=== PATIENT | female | born 1930 | race American Indian/Alaskan Native ===

== ENCOUNTER 2020-01-17 14:08 | Inpatient (IN) | payer MEDICARE ==
[2020-01-17] MEDS ORDERED: dilTIAZem 25 MG/5 ML INJ IV ONE ×2 (16:33→17:12)
--- NOTE | 2020-01-17 16:34 | Emergency Department Report ---
ED General Adult HPI - General Chief complaint: Dyspnea/Respdistress Stated complaint: DIFFICULTY BREATHING PUI?: No Time Seen by Provider: 01/17/20 16:25 Source: patient, EMS ( EMS documentation not available at time of chart dictation ), RN notes reviewed Mode of arrival: Stretcher Limitations: Physical Limitation, Other (Patient is a poor historian) - History of Present Illness Initial comments: The patient was evaluated in the emergency department for symptoms described in the history of present illness. He/she was evaluated in the context of the global COVID-19 pandemic, which necessitated consideration that the patient might be at risk for infection with the virus that causes COVID-19. Institutional protocols and algorithms that pertain to the evaluation of patients at risk for COVID-19 are in a state of rapid change based on information released by regulatory bodies including the CDC and federal and state organizations. These policies and algorithms were followed during the patient's care in the emergency department. Please note that these policies, procedures and recommendations changed on a rapid basis. Patient is an 89-year-old female. She is not known to myself previously. She appears to have a history of A. fib, on Eliquis, high cholesterol, hypertension, history of partial thyroidectomy. 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 Primary CARE doctor: Dr. Douglas Oh Cardiology: Dr. Jules Ambrose, Dr Maite Walls Patient brought to the hospital today by emergency medical services with a reported complaint of shortness of breath. Patient herself tells me that she is feeling short of breath. She denies physical pain. She is not quite sure how long she has been feeling this way. She denies headache, neck pain, chest pain, abdominal pain, hematemesis and bright red blood per rectum. Patient is somewhat of a poor historian, and has difficulty describing the qualitative nature of her symptoms, exacerbating, or relieving factors. Patient is not currently accompanied by friends or family at this time for additional information or collateral information. -: unknown Consistency: other Improves with: other Worsens with: other Associated Symptoms: other - Related Data Home Medications Medication Instructions Recorded Confirmed Last Taken Apixaban [Eliquis] 2.5 mg PO BID 01/17/20 01/17/20 01/17/20 AtorvaSTATin [Lipitor] 80 mg PO QHS 01/17/20 01/17/2001/16/20 Cyanocobalamin [Vitamin B-12] 2,500 mcg PO DAILY 01/17/20 01/17/20 01/17/20 Allergies Allergy/AdvReac Type Severity Reaction Status Date / Time metoprolol AdvReac Unknown Verified 01/17/20 16:04 ED Review of Systems ROS: Stated complaint: DIFFICULTY BREATHING Other details as noted in HPI Comment: Unobtainable due to pts medical conditions Constitutional: malaise Respiratory: shortness of breath Cardiovascular: denies: chest pain Gastrointestinal: denies: abdominal pain, hematemesis, melena, hematochezia Genitourinary: denies: dysuria Neurological: weakness, confusion ED Past Medical Hx - Past Medical History Previous Medical History?: Yes Hx Hypertension: Yes Hx Heart Attack/AMI: Yes (2 2014) Additional medical history: high cholestrol - Social History Smoking Status: Never Smoker Substance Use Type: None - Medications Home Medications: Home Medications Medication Instructions Recorded Confirmed Last Taken Type Apixaban [Eliquis] 2.5 mg PO BID 01/17/20 01/17/20 01/17/20 History AtorvaSTATin [Lipitor] 80 mg PO QHS 01/17/20 01/17/20 01/17/20 History Cyanocobalamin [Vitamin B-12] 2,500 mcg PO DAILY 01/17/20 01/17/20 01/17/20 History ED Physical Exam - General Limitations: Physical Limitation, Other (Poor historian) General appearance: in no apparent distress, anxious - Head Head exam: Present: atraumatic, normocephalic - Eye Eye exam: Present: normal appearance, EOMI - ENT ENT exam: Present: normal exam, normal orophraynx, mucous membranes moist, normal external ear exam - Neck Neck exam: Present: normal inspection, full ROM. Absent: tenderness, meningismus - Respiratory Respiratory exam: Present: respiratory distress, rales. Absent: rhonchi, stridor - Cardiovascular Cardiovascular Exam: Present: tachycardia, irregular rhythm. Absent: systolic murmur, diastolic murmur, rubs, gallop - GI/Abdominal GI/Abdominal exam: Present: soft. Absent: distended, tenderness, guarding, rebound, rigid, pulsatile mass - Rectal Rectal exam: Present: normal inspection (Chronic appearing sacral wounds, without redness, pus or streaking. Chaperoned by nurse Merissa Miner) - Extremities Exam Extremities exam: Present: normal inspection, full ROM, pedal edema, other (2+ pulses noted in the bilateral upper and lower extremities. There is no palpable cord. negative Homans sign. Muscular compartments are soft. The pelvis is stable.). Absent: calf tenderness - Back Exam Back exam: Present: normal inspection, full ROM. Absent: tenderness, CVA tenderness (R), CVA tenderness (L), paraspinal tenderness, vertebral tenderness - Neurological Exam Neurological exam: Present: altered, other (No facial droop. Tongue midline. Extraocular movements intact bilaterally. Facial sensation intact to light touch in V1, V2, V3 distribution bilaterally. 5 and a 5 strength in 4 extremities. Sensation intact to light touch in 4 extremities.) - Psychiatric Psychiatric exam: Present: anxious - Skin Skin exam: Present: warm, dry, intact, normal color. Absent: rash ED Course Vital Signs 01/17/20 01/17/20 01/17/20 15:10 15:16 15:19 Temperature 97.9 F Pulse Rate 148 H 141 H 125 H Respiratory 28 H 33 H 31 H Rate Blood Pressure 141/92 134/87 Blood Pressure 134/87 [Left] O2 Sat by Pulse 100 99 Oximetry 01/17/20 01/17/20 01/17/20 15:30 15:46 16:00 Temperature Pulse Rate 135 H 146 H 145 H Respiratory 28 H 27 H 22 Rate Blood Pressure 134/87 132/82 130/82 Blood Pressure [Left] O2 Sat by Pulse 98 100 99 Oximetry 01/17/20 01/17/20 01/17/20 16:16 16:30 16:45 Temperature Pulse Rate 158 H 147 H 184 H Respiratory 36 H 36 H Rate Blood Pressure 127/80 127/80 140/95 Blood Pressure [Left] O2 Sat by Pulse 100 100 Oximetry 01/17/20 01/17/20 01/17/20 16:46 17:00 17:15 Temperature Pulse Rate 153 H 129 H 112 H Respiratory 27 H 24 30 H Rate Blood Pressure 121/72 146/74 136/74 Blood Pressure [Left] O2 Sat by Pulse 100 99 99 Oximetry 01/17/20 01/17/20 01/17/20 17:23 17:30 17:45 Temperature Pulse Rate 145 H 118 H 101 H Respiratory 33 H 22 Rate Blood Pressure 136/74 136/66 121/76 Blood Pressure [Left] O2 Sat by Pulse 99 99 Oximetry 01/17/20 01/17/20 01/17/20 18:00 18:16 18:20 Temperature Pulse Rate 113 H 102 H 131 H Respiratory 29 H 18 Rate Blood Pressure 123/67 129/63 129/63 Blood Pressure [Left] O2 Sat by Pulse 98 99 Oximetry 01/17/20 01/17/20 01/17/20 18:30 18:46 19:00 Temperature 97.6 F Pulse Rate 140 H 98 H 165 H Respiratory 33 H 16 26 H Rate Blood Pressure 129/63 116/79 116/79 Blood Pressure 149/62 [Left] O2 Sat by Pulse 99 99 99 Oximetry 01/17/20 01/17/20 01/17/20 19:16 19:27 19:30 Temperature Pulse Rate 166 H 93 H 86 Respiratory 27 H Rate Blood Pressure 156/77 145/69 Blood Pressure [Left] O2 Sat by Pulse 100 100 Oximetry 01/17/20 01/17/20 19:45 20:00 Temperature Pulse Rate 82 91 H Respiratory 30 H 23 Rate Blood Pressure 147/71 143/76 Blood Pressure 147/71 [Left] O2 Sat by Pulse 100 100 Oximetry - Reevaluation(s) Reevaluation #1: 01/17/20 18:02 Heart rate now in the 90s. Hospital physician Dr Corry Olmstead updated, he states he will downgrade the patient. Verbal instruction provided to nursing team to hold diltiazem drip for now. TSH reviewed and appreciated, T4 is ordered. There may be a component of hyperthyroidism here. Reevaluation #2: 01/17/20 19:09 Free T4 is pending. Hospital physician, Dr. Corry Olmstead, States he will follow up on thyroid tests and medicate appropriately. Heart rate back in the 170s. Hospital physician Dr Corry Olmstead request diltiazem drip. This will require an up triage to the ICU. ED Medical Decision Making - Lab Data Result diagrams: 01/17/20 16:38 01/17/20 16:38 Vital Signs 01/17/20 01/17/20 01/17/20 15:10 15:16 15:19 Temperature 97.9 F Pulse Rate 148 H 141 H 125 H Respiratory 28 H 33 H 31 H Rate Blood Pressure 141/92 134/87 Blood Pressure 134/87 [Left] O2 Sat by Pulse 100 99 Oximetry 01/17/20 01/17/20 01/17/20 15:30 15:46 16:00 Temperature Pulse Rate 135 H 146 H 145 H Respiratory 28 H 27 H 22 Rate Blood Pressure 134/87 132/82 130/82 Blood Pressure [Left] O2 Sat by Pulse 98 100 99 Oximetry 01/17/20 01/17/20 16:45 17:23 Temperature Pulse Rate 184 H 145 H Respiratory Rate Blood Pressure 140/95 136/74 Blood Pressure [Left] O2 Sat by Pulse Oximetry Lab Results 01/17/20 01/17/20 01/17/20 Range/Units 16:38 16:38 16:38 WBC 4.3 L (4.5-11.0) K/mm3 RBC 4.23 (3.65-5.03) M/mm3 Hgb 12.1 (10.1-14.3) gm/dl Hct 37.2 (30.3-42.9) % MCV 88 (79-97) fl MCH 29 (28-32) pg MCHC 33 (30-34) % RDW 15.2 (13.2-15.2) % Plt Count 182 (140-440) K/mm3 Lymph % (Auto) 38.0 H (13.4-35.0) % [place] % (Auto) 16.0 H (0.0-7.3) % Eos % (Auto) 0.6 (0.0-4.3) % Baso % (Auto) 0.6 (0.0-1.8) % Lymph # (Auto) 1.6 (1.2-5.4) K/mm3 [place] # (Auto) 0.7 (0.0-0.8) K/mm3 Eos # (Auto) 0.0 (0.0-0.4) K/mm3 Baso # (Auto) 0.0 (0.0-0.1) K/mm3 Seg Neutrophils % 44.8 (40.0-70.0) % Seg Neutrophils # 1.9 (1.8-7.7) K/mm3 PT (12.2-14.9) Sec. INR (0.87-1.13) Sodium 138 (137-145) mmol/L Potassium 3.8 (3.6-5.0) mmol/L Chloride 103.8 (98-107) mmol/L Carbon Dioxide 22 (22-30) mmol/L Anion Gap 16 mmol/L BUN 19 H (7-17) mg/dL Creatinine 0.9 (0.6-1.2) mg/dL Estimated GFR > 60 ml/min BUN/Creatinine Ratio 21 % Glucose 101 H (65-100) mg/dL Lactic Acid 1.70 (0.7-2.0) mmol/L Calcium 8.4 (8.4-10.2) mg/dL Magnesium 1.80 (1.7-2.3) mg/dL Total Bilirubin 0.60 (0.1-1.2) mg/dL AST 45 H (5-40) units/L ALT 32 (7-56) units/L Alkaline Phosphatase 79 (35-129) units/L Total Creatine Kinase (30-135) units/L Troponin T (0.00-0.029) ng/mL NT-Pro-B Natriuret Pep (0-900) pg/mL Total Protein 6.8 (6.3-8.2) g/dL Albumin 3.1 L (3.9-5) g/dL Albumin/Globulin Ratio 0.8 % 01/17/20 01/17/20 Range/Units 16:38 16:38 WBC (4.5-11.0) K/mm3 RBC (3.65-5.03) M/mm3 Hgb (10.1-14.3) gm/dl Hct (30.3-42.9) % MCV (79-97) fl MCH (28-32) pg MCHC (30-34) % RDW (13.2-15.2) % Plt Count (140-440) K/mm3 Lymph % (Auto) (13.4-35.0) % [place] % (Auto) (0.0-7.3) % Eos % (Auto) (0.0-4.3) % Baso % (Auto) (0.0-1.8) % Lymph # (Auto) (1.2-5.4) K/mm3 [place] # (Auto) (0.0-0.8) K/mm3 Eos # (Auto) (0.0-0.4) K/mm3 Baso # (Auto) (0.0-0.1) K/mm3 Seg Neutrophils % (40.0-70.0) % Seg Neutrophils # (1.8-7.7) K/mm3 PT 14.8 (12.2-14.9) Sec. INR 1.14 H (0.87-1.13) Sodium (137-145) mmol/L Potassium (3.6-5.0) mmol/L Chloride (98-107) mmol/L Carbon Dioxide (22-30) mmol/L Anion Gap mmol/L BUN (7-17) mg/dL Creatinine (0.6-1.2) mg/dL Estimated GFR ml/min BUN/Creatinine Ratio % Glucose (65-100) mg/dL Lactic Acid (0.7-2.0) mmol/L Calcium (8.4-10.2) mg/dL Magnesium (1.7-2.3) mg/dL Total Bilirubin (0.1-1.2) mg/dL AST (5-40) units/L ALT (7-56) units/L Alkaline Phosphatase (35-129) units/L Total Creatine Kinase 120 (30-135) units/L Troponin T 0.018 (0.00-0.029) ng/mL NT-Pro-B Natriuret Pep 18655 H (0-900) pg/mL Total Protein (6.3-8.2) g/dL Albumin (3.9-5) g/dL Albumin/Globulin Ratio % - EKG Data -: EKG Interpreted by Me Rate: tachycardia - EKG Data When compared to previous EKG there are: previous EKG unavailable 01/17/20 17:33 A. fib, rapid ventricular rate, 166 bpm, variable ventricular conduction, left axis deviation, left anterior fascicular block, QTC 497 ms, abnormal EKG, not a STEMI, there is no prior for comparison. - Radiology Data Radiology results: pending, report reviewed, image reviewed interpreted by me: 1 view x-ray of the chest, interpreted by myself, right lower lobe infiltrate, pulmonary vascular congestion/CHF. CHEST 1 VIEW INDICATION / CLINICAL INFORMATION: Dyspnea. COMPARISON: None available. FINDINGS: SUPPORT DEVICES: None. HEART / MEDIASTINUM: Mild cardiomegaly LUNGS / PLEURA: Bibasilar pleural-parenchymal disease No pneumothorax. ADDITIONAL FINDINGS: No significant additional findings. IMPRESSION: Bibasilar pleural-parenchymal disease with mild cardiomegaly Signer Name: Marquez Rodriguez MD FACR Signed: 01/17/2020 4:34 PM Workstation Name: [id number] - Medical Decision Making Differential diagnosis, including but not limited to: A. fib with RVR, electrolyte derangement, thyroid derangement, pneumonia, urinary tract infection, anemia, congestive heart failure Assessment and plan: 89-year-old female who appears dyspneic, who is in A. fib with RVR, with evidence of lower extremity edema, crackles, mild rales, JVD, received diltiazem 10 mg IV x1, then 15 mg IV x1, still in A. fib with RVR, req uires initiation of diltiazem drip, and diuresis. X-ray of the chest suggested right lower lobe pneumonia, and urinalysis is pending at this time. Blood cultures will be obtained, patient will be given Lasix, ceftriaxone, azithromycin, urinalysis is pending, will also give oral diltiazem. Case is presented to the hospital physician, Dr. Corry Olmstead, who has accepted the patient to the medical service. Critical Care Time: Yes Critical care time in (mins) excluding proc time.: 35 Critical care attestation.: If time is entered above; I have spent that time in minutes in the direct care of this critically ill patient, excluding procedure time. ED Disposition Clinical Impression: Atrial fibrillation with RVR, CHF exacerbation Disposition: OP ADMIT IP TO THIS HOSP Is pt being admited?: Yes Does the pt Need Aspirin: No Condition: Serious
[2020-01-17 17:11] LABS: Basophils % (Auto) 0.6 % (0.0-1.8); Eosinophils % (Auto) 0.6 % (0.0-4.3); Hematocrit 37.2 % (30.3-42.9); Hemoglobin 12.1 gm/dl (10.1-14.3); Lymphocytes # (Auto) 1.6 K/mm3 (1.2-5.4); Mean Corpuscular HGB Conc 33 % (30-34); Mean Corpuscular Volume 88 fl (79-97); Monocytes # (Auto) 0.7 K/mm3 (0.0-0.8); Platelet Count 182 K/mm3 (140-440); Red Blood Count 4.23 M/mm3 (3.65-5.03); Red Cell Distribution Width 15.2 % (13.2-15.2)
[2020-01-17 17:21] LABS: INR 1.14 (0.87-1.13)
[2020-01-17 17:29] LABS: Alanine Aminotransferase 32 units/L (7-56); Albumin 3.1 g/dL (3.9-5); BUN/Creatinine Ratio 21; Blood Urea Nitrogen 19 mg/dL (7-17); Calcium 8.4 mg/dL (8.4-10.2); Hemolysis Index 25
[2020-01-17] MEDS ORDERED: cefTRIAXone/NS 1 GM/50 ML 1 GM/50 ML BAG IV ONE (17:35)
[2020-01-17] MEDS ORDERED: FUROSEMIDE 40 MG/4 ML INJ IV ONE (17:35)
[2020-01-17] MEDS ORDERED: dilTIAZem 60 MG TAB PO ONE (17:35)
--- NOTE | 2020-01-17 17:39 | XRay Report ---
CHEST 1 VIEW INDICATION / CLINICAL INFORMATION: Dyspnea. COMPARISON: None available. FINDINGS: SUPPORT DEVICES: None. HEART / MEDIASTINUM: Mild cardiomegaly LUNGS / PLEURA: Bibasilar pleural-parenchymal disease No pneumothorax. ADDITIONAL FINDINGS: No significant additional findings. IMPRESSION: Bibasilar pleural-parenchymal disease with mild cardiomegaly Signer Name: Marquez Rodriguez MD FACR Signed: 01/17/2020 5:34 PM Workstation Name: [id number]
[2020-01-17] MEDS ORDERED: dilTIAZem/D5W 100 MG/100 ML BAG IV SCH ×2 (18:00→20:00)
[2020-01-17] MEDS ORDERED: dilTIAZem 30 MG TAB ONE (18:15)
[2020-01-17] MEDS ORDERED: dilTIAZem 30 MG TAB PO ONE (18:19)
[2020-01-17] MEDS ORDERED: AZITHROMYCIN 500 MG in SODIUM CHLORIDE 0.9% 250ML 250 ML IV ONE (19:00)
[2020-01-17 20:06] LABS: Bilirubin,Urine NEG (Negative); Blood,Urine NEG (Negative); Color,Urine Straw (Yellow); Protein,Urine <15 mg/dL mg/dL (Negative); RBC,Urine < 1.0 /HPF (0.0-6.0); Urobilinogen,Urine < 2.0 mg/dL (<2.0)
[2020-01-17 20:07] LABS: WBC,Urine < 1.0 /HPF (0.0-6.0)
--- NOTE | 2020-01-17 21:53 | History and Physical Report ---
History of Present Illness Date of examination: 01/17/20 Date of admission: 01/17/20 17:39 Chief complaint: Palpitations and shortness of breath since a.m. History of present illness: 89-year-old female with history of. Compliant with on Eliquis and hyperlipidemia and hypertension comes in for shortness of breath and severe palpitations. Started this morning suddenly. No chest pain. No syncope. No diaphoresis. No orthopnea. Patient is on Eliquis. Compliant with medications. No exposure to coronavirus infection. - Past Medical History Previous Medical History?: Yes Hx Hypertension: Yes Hx Heart Attack/AMI: Yes (2 stent 2014) Additional medical history: high cholestrol Surgical history N/a - Social History Smoking Status: Never Smoker Substance Use Type: None Family history Htn - Medications Home Medications: Home Medications Medication Instructions Recorded Confirmed Last Taken Type Apixaban [Eliquis] 2.5 mg PO BID 01/17/20 01/17/20 01/17/20 History AtorvaSTATin [Lipitor] 80 mg PO QHS 01/17/20 01/17/20 01/17/20 History Cyanocobalamin [Vitamin B-12] 2,500 mcg PO DAILY 01/17/20 01/17/20 01/17/20 History Review of Systems ROS: Stated complaint: DIFFICULTY BREATHING Other details as noted in HPI Constitutional no weight loss or weight gain no fever or chills HEENT no sore throat no post nasal drip no diplopia Neck no neck stiffness no lymph gland enlargement Chest and lungs no shortness of breath cough or wheezing CVS palpitations and shortness of breath GI no nausea no vomiting no diarrhea Genitourinary system no dysuria no flank pain Musculoskeletal system no muscle pains no joint pains [employer] no syncope no seizures Skin no rash no itching Psychiatric no depression no homicidal or suicidal tendencies Hematologic no lymphedema or bruising Endocrine no polydipsia no polyuria no cold intolerance no heat intolerance Medications and Allergies Allergies Allergy/AdvReac Type Severity Reaction Status Date / Time metoprolol AdvReac Unknown Verified 01/17/20 16:04 Home Medications Medication Instructions Recorded Confirmed Last Taken Type Apixaban [Eliquis] 2.5 mg PO BID 01/17/20 01/17/20 01/17/20 History AtorvaSTATin [Lipitor] 80 mg PO QHS 01/17/20 01/17/20 01/17/20 History Cyanocobalamin [Vitamin B-12] 2,500 mcg PO DAILY 01/17/20 01/17/20 01/17/20 History Active Meds: Active Medications Diltiazem HCl (Cardizem/D5w 100mg/100ml) 100 mg in 100 mls @ 5 mls/hr IV TITR CHAPO; Protocol Exam - Constitutional Vitals: Temp Pulse Resp BP Pulse Ox 97.6 F 91 H 23 143/76 100 01/17/20 19:00 01/17/20 20:00 01/17/20 20:00 01/17/20 20:00 01/17/20 20:49 General appearance: Present: no acute distress, well-nourished - EENT Eyes: Present: PERRL ENT: hearing intact, clear oral mucosa - Neck Neck: Present: supple, normal ROM - Respiratory Respiratory effort: normal Respiratory: bilateral: CTA - Cardiovascular Heart rate: 160 Rhythm: irregularly irregular Heart Sounds: Present: S1 & S2. Absent: rub, click - Extremities Extremities: pulses symmetrical, No edema Peripheral Pulses: within normal limits - Abdominal General gastrointestinal: Present: soft, non-tender, non-distended, normal bowel sounds Female genitourinary: Present: normal - Integumentary Integumentary: Present: clear, warm, dry - Musculoskeletal Musculoskeletal: gait normal, strength equal bilaterally - Psychiatric Psychiatric: appropriate mood/affect, intact judgment & insight - Neurologic Neurologic: CNII-XII intact, moves all extremities - Allied Health Allied health notes reviewed: nursing, case management HEART Score - HEART Score History: Moderately suspicious Age: > 65 Risk factors: 1-2 risk factors Troponin: Troponin T 0.018 ng/mL (0.00-0.029) 01/17/20 16:38 Troponin: 1-3x normal limit - Critical Actions Critical Actions: 4-6 pts:12-16.6% risk of adverse cardiac event. Should be admitted Results - Labs CBC & Chem 7: 01/18/20 05:38 01/17/20 16:38 Labs: Laboratory Last Values WBC 4.3 K/mm3 (4.5-11.0) L 01/17/20 16:38 RBC 4.23 M/mm3 (3.65-5.03) 01/17/20 16:38 Hgb 12.1 gm/dl (10.1-14.3) 01/17/20 16:38 Hct 37.2 % (30.3-42.9) 01/17/20 16:38 MCV 88 fl (79-97) 01/17/20 16:38 MCH 29 pg (28-32) 01/17/20 16:38 MCHC 33 % (30-34) 01/17/20 16:38 RDW 15.2 % (13.2-15.2) 01/17/20 16:38 Plt Count 182 K/mm3 (140-440) 01/17/20 16:38 Lymph % (Auto) 38.0 % (13.4-35.0) H 01/17/20 16:38 [place] % (Auto) 16.0 % (0.0-7.3) H 01/17/20 16:38 Eos % (Auto) 0.6 % (0.0-4.3) 01/17/20 16:38 Baso % (Auto) 0.6 % (0.0-1.8) 01/17/20 16:38 Lymph # (Auto) 1.6 K/mm3 (1.2-5.4) 01/17/20 16:38 [place] # (Auto) 0.7 K/mm3 (0.0-0.8) 01/17/20 16:38 Eos # (Auto) 0.0 K/mm3 (0.0-0.4) 01/17/20 16:38 Baso # (Auto) 0.0 K/mm3 (0.0-0.1) 01/17/20 16:38 Seg Neutrophils % 44.8 % (40.0-70.0) 01/17/20 16:38 Seg Neutrophils # 1.9 K/mm3 (1.8-7.7) 01/17/20 16:38 PT 14.8 Sec. (12.2-14.9) 01/17/20 16:38 INR 1.14 (0.87-1.13) H 01/17/20 16:38 Sodium 138 mmol/L (137-145) 01/17/20 16:38 Potassium 3.8 mmol/L (3.6-5.0) 01/17/20 16:38 Chloride 103.8 mmol/L (98-107) 01/17/20 16:38 Carbon Dioxide 22 mmol/L (22-30) 01/17/20 16:38 Anion Gap 16 mmol/L 01/17/20 16:38 BUN 19 mg/dL (7-17) H 01/17/20 16:38 Creatinine 0.9 mg/dL (0.6-1.2) 01/17/20 16:38 Estimated GFR > 60 ml/min 01/17/20 16:38 BUN/Creatinine Ratio 21 % 01/17/20 16:38 Glucose 101 mg/dL (65-100) H 01/17/20 16:38 Lactic Acid 1.70 mmol/L (0.7-2.0) 01/17/20 16:38 Calcium 8.4 mg/dL (8.4-10.2) 01/17/20 16:38 Magnesium 1.80 mg/dL (1.7-2.3) 01/17/20 16:38 Total Bilirubin 0.60 mg/dL (0.1-1.2) 01/17/20 16:38 AST 45 units/L (5-40) H 01/17/20 16:38 ALT 32 units/L (7-56) 01/17/20 16:38 Alkaline Phosphatase 79 units/L (35-129) 01/17/20 16:38 Total Creatine Kinase 120 units/L (30-135) 01/17/20 16:38 Troponin T 0.018 ng/mL (0.00-0.029) 01/17/20 16:38 NT-Pro-B Natriuret Pep 95717 pg/mL (0-900) H 01/17/20 16:38 Total Protein 6.8 g/dL (6.3-8.2) 01/17/20 16:38 Albumin 3.1 g/dL (3.9-5) L 01/17/20 16:38 Albumin/Globulin Ratio 0.8 % 01/17/20 16:38 TSH 0.005 mlU/mL (0.270-4.200) L 01/17/20 16:38 Free T4 1.78 ng/dL (0.76-1.46) H 01/17/20 16:38 Urine Color Straw (Yellow) 01/17/20 19:55 Urine Turbidity Clear (Clear) 01/17/20 19:55 Urine pH 6.0 (5.0-7.0) 01/17/20 19:55 Ur Specific [place] 1.006 (1.003-1.030) 01/17/20 19: Urine Protein <15 mg/dl mg/dL (Negative) 01/17/20 19:55 Urine Glucose (UA) Neg mg/dL (Negative) 01/17/20 19: Urine Ketones Neg mg/dL (Negative) 01/17/20 19: Urine Blood Neg (Negative) 01/17/20 19:55 Urine Nitrite Neg (Negative) 01/17/20 19: Urine Bilirubin Neg (Negative) 01/17/20 19: Urine Urobilinogen < 2.0 mg/dL (<2.0) 01/17/20 19: Ur Leukocyte Esterase Neg (Negative) 01/17/20 19: Urine WBC (Auto) < 1.0 /HPF (0.0-6.0) 01/17/20 19: Urine RBC (Auto) < 1.0 /HPF (0.0-6.0) 01/17/20 19:55 U Epithel Cells (Auto) < 1.0 /HPF (0-13.0) 01/17/20 19:55 Short CBC 01/17/20 Range/Units 16:38 WBC 4.3 L (4.5-11.0) K/mm3 Hgb 12.1 (10.1-14.3) gm/dl Hct 37.2 (30.3-42.9) % Plt Count 182 (140-440) K/mm3 BMP 01/17/20 16:38 Sodium 138 Potassium 3.8 Chloride 103.8 Carbon Dioxide 22 BUN 19 H Creatinine 0.9 Glucose 101 H Calcium 8.4 Cardiac Enzymes 01/17/20 Range/Units 16:38 Total Creatine Kinase 120 (30-135) units/L Troponin T 0.018 (0.00-0.029) ng/mL Liver Function 01/17/20 Range/Units 16:38 Total Bilirubin 0.60 (0.1-1.2) mg/dL AST 45 H (5-40) units/L ALT 32 (7-56) units/L Alkaline Phosphatase 79 (35-129) units/L Albumin 3.1 L (3.9-5) g/dL Urine 01/17/20 Range/Units 19:55 Urine Color Straw (Yellow) Urine pH 6.0 (5.0-7.0) Ur Specific [place] 1.006 (1.003-1.030) Urine Protein <15 mg/dl (Negative) mg/dL Urine Glucose (UA) Neg (Negative) mg/dL Short CBC 01/17/20 01/18/20 Range/Units 16:38 05:38 WBC 4.3 L 5.1 (4.5-11.0) K/mm3 Hgb 12.1 10.5 (10.1-14.3) gm/dl Hct 37.2 30.8 D (30.3-42.9) % Plt Count 182 156 (140-440) K/mm3 BMP 01/17/20 16:38 Sodium 138 Potassium 3.8 Chloride 103.8 Carbon Dioxide 22 BUN 19 H Creatinine 0.9 Glucose 101 H Calcium 8.4 Cardiac Enzymes 01/17/20 Range/Units 16:38 Total Creatine Kinase 120 (30-135) units/L Troponin T 0.018 (0.00-0.029) ng/mL Liver Function 01/17/20 Range/Units 16:38 Total Bilirubin 0.60 (0.1-1.2) mg/dL AST 45 H (5-40) units/L ALT 32 (7-56) units/L Alkaline Phosphatase 79 (35-129) units/L Albumin 3.1 L (3.9-5) g/dL Urine 01/17/20 Range/Units 19:55 Urine Color Straw (Yellow) Urine pH 6.0 (5.0-7.0) Ur Specific [place] 1.006 (1.003-1.030) Urine Protein <15 mg/dl (Negative) mg/dL Urine Glucose (UA) Neg (Negative) mg/dL Microbiology: Microbiology 01/17/20 16:45 Peripheral/Venous Blood Culture - Preliminary Culture in Progress 01/17/20 16:38 Peripheral/Venous Blood Culture - Preliminary Culture in Progress - Imaging and Cardiology EKG: report reviewed (Atrial fibrillation with rapid ventricular rate of 1 60-1 70) Imaging and Cardiology: Chest x-ray Bibasilar pleural-parenchymal disease with mild cardiomegaly Samuels/IV: IV Catheter Type [Left Hand] INT / Saline Lock Assessment and Plan Advance Directives: Yes (Full code) - Patient Problems (1) Atrial fibrillation with RVR Current Visit: Yes Status: Acute Plan to address problem: Patient initiated on Cardizem drip and which is to be titrated hence admission to ICU Oral Cardizem also initiated. Cardiology consult requested. (2) CHF exacerbation Current Visit: Yes Status: Acute Qualifiers: Heart failure type: combined systolic and diastolic Qualified Code(s): I50.43 - Acute on chronic combined systolic (congestive) and diastolic (congestive) heart failure Plan to address problem: Echocardiogram for ejection fraction IV Lasix 40 mg every 12 Daily weights Daily intake output Cardiology consult BNP around 24,200 (3) Thyrotoxicosis Current Visit: Yes Status: Chronic Qualifiers: Thyrotoxic crisis or storm presence: without thyrotoxic crisis or storm Plan to address problem: Patient initiated on methimazole 10 mg twice daily. Patient to follow-up with endocrinology as outpatient. Thyroid profile is pending. TSH is low and T4 is high. (4) Hypertension Current Visit: Yes Status: Chronic Qualifiers: Hypertension type: essential hypertension Qualified Code(s): I10 - Essential (primary) hypertension Plan to address problem: Continue antihypertensives (5) Hyperlipidemia Current Visit: Yes Status: Chronic Qualifiers: Hyperlipidemia type: mixed hyperlipidemia Qualified Code(s): E78.2 - Mixed hyperlipidemia Plan to address problem: Continue statins (6) DVT prophylaxis Current Visit: Yes Status: Acute Plan to address problem: Patient on Eliquis and GI prophylaxis
[2020-01-17] MEDS ORDERED: HYDROmorphone 1 MG/1 ML INJ IV PRN (22:01)
[2020-01-17] MEDS ORDERED: oxyCODONE /ACETAMINOPHEN 5-325MG TAB PO PRN (22:01)
[2020-01-17] MEDS ORDERED: ONDANSETRON 4 MG/2 ML INJ IV PRN (22:01)
[2020-01-17] MEDS ORDERED: ACETAMINOPHEN 325 MG TAB PO PRN (22:01)
[2020-01-17] MEDS ORDERED: SODIUM CHLORIDE 0.9% 1000 ML 1,000 ML IV SCH (22:15)
[2020-01-17] MEDS ORDERED: HEPARIN 5,000 UNIT/1 ML VIAL SUB-Q SCH (22:15)
[2020-01-17] MEDS: APIXABAN 2.5 MG TAB PO SCH (23:07)
[2020-01-18 06:15] LABS: Hematocrit 30.8 % (30.3-42.9); Hemoglobin 10.5 gm/dl (10.1-14.3); Mean Corpuscular HGB Conc 34 % (30-34); Mean Corpuscular Volume 86 fl (79-97); Platelet Count 156 K/mm3 (140-440); Red Cell Distribution Width 14.9 % (13.2-15.2)
[2020-01-18 06:19] LABS: Basophils % (Auto) 0.1 % (0.0-1.8); Eosinophils % (Auto) 0.7 % (0.0-4.3); Lymphocytes % (Auto) 34.2 % (13.4-35.0); Monocytes % (Auto) 16.8 % (0.0-7.3)
[2020-01-18 06:20] LABS: Lymphocytes # (Auto) 1.7 K/mm3 (1.2-5.4); Monocytes # (Auto) 0.9 K/mm3 (0.0-0.8)
[2020-01-18 06:32] LABS: Alanine Aminotransferase 25 units/L (7-56); Albumin 2.9 g/dL (3.9-5); BUN/Creatinine Ratio 21; Blood Urea Nitrogen 17 mg/dL (7-17); Calcium 8.1 mg/dL (8.4-10.2); Hemolysis Index 1
[2020-01-18] MEDS ORDERED: POTASSIUM CHLORIDE ER 20 MEQ TAB PO ONE ×2 (06:34→09:00)
[2020-01-18] MEDS ORDERED: ONDANSETRON 4 MG/2 ML INJ IV PRN (06:36)
[2020-01-18] MEDS ORDERED: ACETAMINOPHEN 325 MG TAB PO PRN (06:36)
[2020-01-18 08:27] LABS: Free T4 (Free Thyroxine) 1.88 ng/dL (0.76-1.46)
[2020-01-18] MEDS: CYANOCOBALAMIN (VIT B-12) 1000 MCG TAB PO SCH (09:31)
[2020-01-18] MEDS: APIXABAN 2.5 MG TAB PO SCH ×2 (09:32→21:12)
[2020-01-18] MEDS: dilTIAZem CD 180 MG CAP PO SCH (09:33)
[2020-01-18] MEDS: POTASSIUM CHLORIDE ER 20 MEQ TAB PO SCH (09:35)
--- NOTE | 2020-01-18 10:20 | Progress Note ---
Assessment and Plan Assessment and plan: -- Atrial fibrillation with RVR/POA Current Visit: Yes Status: Acute Plan to address problem: Now rate controlled On oral Cardizem s/p Cardizem drip Cardiology evaluation and recommendations Noted and appreciated --CHF exacerbation Current Visit: Yes Status: Acute Plan to address problem: Echocardiogram for ejection fraction IV Lasix 40 mg every 12 Daily weights Daily intake output Cardiology consult BNP around 24,200 --Thyrotoxicosis Current Visit: Yes Status: Chronic Plan to address problem: Patient initiated on methimazole 10 mg twice daily. Patient to follow-up with endocrinology upon discharge TSH is low and T4 is high. -- Hypertension Current Visit: Yes Status: Chronic Plan to address problem: Continue antihypertensives --Hyperlipidemia Current Visit: Yes Status: Chronic Plan to address problem: Continue statins -- DVT prophylaxis Current Visit: Yes Status: Acute Plan to address problem: Patient on Eliquis and GI prophylaxis History Interval history: I have seen and examined the patient at the bedside in ICU this morning Patient's chart and medications reviewed Admitted with Holli rios with rapid ventricular rate Currently rate controlled, on oral Cardizem Cardiology evaluation noted and appreciated Patient has no new complaints Vital signs noted Hospitalist Physical - Constitutional Vitals: Temp Pulse Resp BP Pulse Ox 98.1 F 87 25 H 137/71 100 01/18/20 08:00 01/18/20 09:40 01/18/20 09:40 01/18/20 09:40 01/18/20 09:40 General appearance: Present: no acute distress, well-nourished - EENT Eyes: Present: PERRL, EOM intact - Neck Neck: Present: supple, normal ROM - Respiratory Respiratory effort: normal Respiratory: bilateral: diminished, negative: rales, rhonchi, wheezing - Cardiovascular Rhythm: regular Heart Sounds: Present: S1 & S2 - Extremities Extremities: no ischemia, No edema - Abdominal General gastrointestinal: soft, non-tender, non-distended, normal bowel sounds - Integumentary Integumentary: Present: clear, warm - Psychiatric Psychiatric: appropriate mood/affect, cooperative, other (Confused) - Neurologic Neurologic: moves all extremities, other (Confused, dementia) HEART Score - HEART Score Age: > 65 Risk factors: 1-2 risk factors Troponin: Troponin T 0.018 ng/mL (0.00-0.029) 01/17/20 16:38 Troponin: 1-3x normal limit - Critical Actions Critical Actions: 4-6 pts:12-16.6% risk of adverse cardiac event. Should be admitted Results - Labs CBC & Chem 7: 01/18/20 05:38 01/18/20 05:38 Labs: Laboratory Last Values WBC 5.1 K/mm3 (4.5-11.0) 01/18/20 05:38 RBC 3.60 M/mm3 (3.65-5.03) L 01/18/20 05:38 Hgb 10.5 gm/dl (10.1-14.3) 01/18/20 05:38 Hct 30.8 % (30.3-42.9) D 01/18/20 05:38 MCV 86 fl (79-97) 01/18/20 05:38 MCH 29 pg (28-32) 01/18/20 05:38 MCHC 34 % (30-34) 01/18/20 05:38 RDW 14.9 % (13.2-15.2) 01/18/20 05:38 Plt Count 156 K/mm3 (140-440) 01/18/20 05:38 Lymph % (Auto) 34.2 % (13.4-35.0) 01/18/20 05:38 [place] % (Auto) 16.8 % (0.0-7.3) H 01/18/20 05:38 Eos % (Auto) 0.7 % (0.0-4.3) 01/18/20 05:38 Baso % (Auto) 0.1 % (0.0-1.8) 01/18/20 05:38 Lymph # (Auto) 1.7 K/mm3 (1.2-5.4) 01/18/20 05:38 [place] # (Auto) 0.9 K/mm3 (0.0-0.8) H 01/18/20 05:38 Eos # (Auto) 0.0 K/mm3 (0.0-0.4) 01/18/20 05:38 Baso # (Auto) 0.0 K/mm3 (0.0-0.1) 01/18/20 05:38 Seg Neutrophils % 48.2 % (40.0-70.0) 01/18/20 05:38 Seg Neutrophils # 2.5 K/mm3 (1.8-7.7) 01/18/20 05:38 PT 14.8 Sec. (12.2-14.9) 01/17/20 16:38 INR 1.14 (0.87-1.13) H 01/17/20 16:38 Sodium 142 mmol/L (137-145) 01/18/20 05:38 Potassium 3.2 mmol/L (3.6-5.0) L 01/18/20 05:38 Chloride 106.5 mmol/L (98-107) 01/18/20 05:38 Carbon Dioxide 24 mmol/L (22-30) 01/18/20 05:38 Anion Gap 15 mmol/L 01/18/20 05:38 BUN 17 mg/dL (7-17) 01/18/20 05:38 Creatinine 0.8 mg/dL (0.6-1.2) 01/18/20 05:38 Estimated GFR > 60 ml/min 01/18/20 05:38 BUN/Creatinine Ratio 21 % 01/18/20 05:38 Glucose 82 mg/dL (65-100) 01/18/20 05:38 Hemoglobin A1c 5.5 % (4-6) 01/17/20 16:38 Lactic Acid 1.70 mmol/L (0.7-2.0) 01/17/20 16:38 Calcium 8.1 mg/dL (8.4-10.2) L 01/18/20 05:38 Magnesium 1.80 mg/dL (1.7-2.3) 01/17/20 16:38 Total Bilirubin 0.50 mg/dL (0.1-1.2) 01/18/20 05:38 AST 30 units/L (5-40) 01/18/20 05:38 ALT 25 units/L (7-56) 01/18/20 05:38 Alkaline Phosphatase 67 units/L (35-129) 01/18/20 05:38 Total Creatine Kinase 120 units/L (30-135) 01/17/20 16:38 Troponin T 0.018 ng/mL (0.00-0.029) 01/17/20 16:38 NT-Pro-B Natriuret Pep 27953 pg/mL (0-900) H 01/17/20 16:38 Total Protein 5.9 g/dL (6.3-8.2) L 01/18/20 05:38 Albumin 2.9 g/dL (3.9-5) L 01/18/20 05:38 Albumin/Globulin Ratio 1.0 % 01/18/20 05:38 TSH < 0.005 mlU/mL (0.270-4.200) L 01/18/20 06:38 Free T4 1.88 ng/dL (0.76-1.46) H 01/18/20 06:38 Urine Color Straw (Yellow) 01/17/20 19:55 Urine Turbidity Clear (Clear) 01/17/20 19:55 Urine pH 6.0 (5.0-7.0) 01/17/20 19:55 Ur Specific [place] 1.006 (1.003-1.030) 01/17/20 19:55 Urine Protein <15 mg/dl mg/dL (Negative) 01/17/20 19:55 Urine Glucose (UA) Neg mg/dL (Negative) 01/17/20 19:55 Urine Ketones Neg mg/dL (Negative) 01/17/20 19:55 Urine Blood Neg (Negative) 01/17/20 19:55 Urine Nitrite Neg (Negative) 01/17/20 19:55 Urine Bilirubin Neg (Negative) 01/17/20 19:55 Urine Urobilinogen < 2.0 mg/dL (<2.0) 01/17/20 19:55 Ur Leukocyte Esterase Neg (Negative) 01/17/20 19:55 Urine WBC (Auto) < 1.0 /HPF (0.0-6.0) 01/17/20 19:55 Urine RBC (Auto) < 1.0 /HPF (0.0-6.0) 01/17/20 19:55 U Epithel Cells (Auto) < 1.0 /HPF (0-13.0) 01/17/20 19:55 Microbiology: Microbiology 01/17/20 16:45 Peripheral/Venous Blood Culture - Preliminary Culture in Progress 01/17/20 16:38 Peripheral/Venous Blood Culture - Preliminary Culture in Progress Samuels/IV: Voiding Method Bedside Commode IV Catheter Type [Left Hand] INT / Saline Lock Active Medications - Current Medications Current Medications: Generic Name Dose Route Start Last Admin Trade Name Freq PRN Reason Stop Dose Admin Acetaminophen 650 mg 01/17/20 22:01 Tylenol PO Q4H PRN Pain MILD(1-3)/Fever >100.5/BRAGA Apixaban 2.5 mg 01/17/20 22:00 01/18/20 09:32 Eliquis PO 2.5 mg BID CHAPO Administration Protocol Atorvastatin Calcium 80 mg 01/17/20 22:00 01/17/20 23:07 Lipitor PO 80 mg QHS CHAPO Administration Cyanocobalamin 2,500 mcg 01/18/20 10:00 01/18/20 09:31 Vitamin B-12 PO 2,500 mcg DAILY CHAPO Administration Diltiazem HCl 180 mg 01/18/20 08:00 01/18/20 09:33 Cardizem Cd PO 180 mg QDAY@0800 CHAPO Administration Furosemide 40 mg 01/18/20 18:00 Lasix IV 0600,1800 CHAPO Hydromorphone HCl 0.5 mg 01/17/20 22:01 Dilaudid IV Q3H PRN Pain , Severe (7-10) Methimazole 10 mg 01/18/20 08:00 Tapazole PO Q12H CHAPO Ondansetron HCl 4 mg 01/17/20 22:01 Zofran IV Q8H PRN Nausea And Vomiting Oxycodone/Acetaminophen 1 tab 01/17/20 22:01 Percocet 5/325 PO Q6H PRN Pain, Moderate (4-6) Potassium Chloride 20 meq 01/18/20 10:00 01/18/20 09:35 K-Dur PO 20 meq Q12HR CHAPO Administration Sodium Chloride 10 ml 01/18/20 10:00 Sodium Chloride Flush Syringe 10 Ml IV BID CHAPO Sodium Chloride 10 ml 01/17/20 22:01 Sodium Chloride Flush Syringe 10 Ml IV PRN PRN LINE FLUSH
--- NOTE | 2020-01-18 10:58 | Consultation ---
History of Present Illness - Reason for Consult Consult date: 01/18/20 SVT Requesting physician: JAMES IBARRA - History of Present Illness 89 y/o female admitted with SVT. sTarted on dilt drip and is now currently in sinus. NOrmal BP. Past History Past Medical History: atrial fib, hyperlipidemia Social history: no significant social history Family history: no significant family history Medications and Allergies Allergies Allergy/AdvReac Type Severity Reaction Status Date / Time metoprolol AdvReac Unknown Verified 01/17/20 16:04 Home Medications Medication Instructions Recorded Confirmed Last Taken Type Apixaban [Eliquis] 2.5 mg PO BID 01/17/20 01/17/20 01/17/20 History AtorvaSTATin [Lipitor] 80 mg PO QHS 01/17/20 01/17/20 01/17/20 History Cyanocobalamin [Vitamin B-12] 2,500 mcg PO DAILY 01/17/20 01/17/20 01/17/20 History Active Meds: Active Medications Acetaminophen (Tylenol) 650 mg PO Q4H PRN PRN Reason: Pain MILD(1-3)/Fever >100.5/BRAGA Apixaban (Eliquis) 2.5 mg PO BID [facility]; Protocol Last Admin: 01/18/20 09:32 Dose: 2.5 mg Documented by: Atorvastatin Calcium (Lipitor) 80 mg PO QHS [facility] Last Admin: 01/17/20 23:07 Dose: 80 mg Documented by: Cyanocobalamin (Vitamin B-12) 2,500 mcg PO DAILY [facility] Last Admin: 01/18/20 09:31 Dose: 2,500 mcg Documented by: Diltiazem HCl (Cardizem Cd) 180 mg PO QDAY@0800 [facility] Last Admin: 01/18/20 09:33 Dose: 180 mg Documented by: Furosemide (Lasix) 40 mg IV 0600,1800 [facility] Hydromorphone HCl (Dilaudid) 0.5 mg IV Q3H PRN PRN Reason: Pain , Severe (7-10) Methimazole (Tapazole) 10 mg PO Q12H [facility] Ondansetron HCl (Zofran) 4 mg IV Q8H PRN PRN Reason: Nausea And Vomiting Oxycodone/Acetaminophen (Percocet 5/325) 1 tab PO Q6H PRN PRN Reason: Pain, Moderate (4-6) Potassium Chloride (K-Dur) 20 meq PO Q12HR CHAPO Last Admin: 01/18/20 09:35 Dose: 20 meq Documented by: Sodium Chloride (Sodium Chloride Flush Syringe 10 Ml) 10 ml IV BID CHAPO Sodium Chloride (Sodium Chloride Flush Syringe 10 Ml) 10 ml IV PRN PRN PRN Reason: LINE FLUSH Review of Systems All systems: negative Exam - Constitutional Vitals: Temp Pulse Resp BP Pulse Ox 98.1 F 87 25 H 137/71 100 01/18/20 08:00 01/18/20 09:40 01/18/20 09:40 01/18/20 09:40 01/18/20 09:40 General appearance: Present: no acute distress - EENT Eyes: Present: PERRL, EOM intact ENT: hearing intact (but hard of hearing) - Neck Neck: Present: supple - Respiratory Respiratory effort: normal Respiratory: bilateral: CTA - Cardiovascular Rhythm: regular Heart Sounds: Present: S1 & S2 Results - Labs CBC & Chem 7: 01/18/20 05:38 01/18/20 05:38 Labs: Abnormal lab results 01/17/20 01/17/20 01/17/20 Range/Units 16:38 16:38 16:38 WBC 4.3 L (4.5-11.0) K/mm3 RBC (3.65-5.03) M/mm3 Lymph % (Auto) 38.0 H (13.4-35.0) % [place] % (Auto) 16.0 H (0.0-7.3) % [place] # (Auto) (0.0-0.8) K/mm3 INR 1.14 H (0.87-1.13) Potassium (3.6-5.0) mmol/L BUN 19 H (7-17) mg/dL Glucose 101 H (65-100) mg/dL Calcium (8.4-10.2) mg/dL AST 45 H (5-40) units/L NT-Pro-B Natriuret Pep (0-900) pg/mL Total Protein (6.3-8.2) g/dL Albumin 3.1 L (3.9-5) g/dL TSH (0.270-4.200) mlU/mL Free T4 (0.76-1.46) ng/dL 01/17/20 01/17/20 01/17/20 Range/Units 16:38 16:38 16:38 WBC (4.5-11.0) K/mm3 RBC (3.65-5.03) M/mm3 Lymph % (Auto) (13.4-35.0) % [place] % (Auto) (0.0-7.3) % [place] # (Auto) (0.0-0.8) K/mm3 INR (0.87-1.13) Potassium (3.6-5.0) mmol/L BUN (7-17) mg/dL Glucose (65-100) mg/dL Calcium (8.4-10.2) mg/dL AST (5-40) units/L NT-Pro-B Natriuret Pep 35759 H (0-900) pg/mL Total Protein (6.3-8.2) g/dL Albumin (3.9-5) g/dL TSH 0.005 L (0.270-4.200) mlU/mL Free T4 1.78 H (0.76-1.46) ng/dL 01/18/20 01/18/20 01/18/20 Range/Units 05:38 05:38 06:38 WBC (4.5-11.0) K/mm3 RBC 3.60 L (3.65-5.03) M/mm3 Lymph % (Auto) (13.4-35.0) % [place] % (Auto) 16.8 H (0.0-7.3) % [place] # (Auto) 0.9 H (0.0-0.8) K/mm3 INR (0.87-1.13) Potassium 3.2 L (3.6-5.0) mmol/L BUN (7-17) mg/dL Glucose (65-100) mg/dL Calcium 8.1 L (8.4-10.2) mg/dL AST (5-40) units/L NT-Pro-B Natriuret Pep (0-900) pg/mL Total Protein 5.9 L (6.3-8.2) g/dL Albumin 2.9 L (3.9-5) g/dL TSH < 0.005 L (0.270-4.200) mlU/mL Free T4 1.88 H (0.76-1.46) ng/dL - Imaging and Cardiology Chest x-ray: image reviewed (bilateral lower lobe airspace disease, could be edema vs infiltrate with some vascular congestion) Assessment and Plan 89 y/o female with SVT and concern for pneumonia. 1. CV-now in sinus rhythm. Cards switching to oral therapy and stopping IV. 2. Pulm-was given abx therapy in ED but no fever, no white count, no cough, no sputum production. Most likely changes were related to volume given uncontrolle d heart rate at the time. If still concern for infection, consider checking procalcitonin 3. Stable for transfer out of ICU to tele floor.
--- NOTE | 2020-01-18 11:31 | Consultation ---
History of Present Illness Consult date: 01/18/20 Requesting physician: MELO SAAVEDRA Consult reason: atrial fibrillation History of present illness: The patient is an 89 YO female with a past medical history of CAD s/p PCI in 2014 at [place], atrial fibrillation, anticoagulated with low dose Eliquis, HTN, HLP, hyperthyroidism s/p partial thyroidectomy. She is followed by [facility] - Dr. Richards and Dr. Pereira. She presented with c/o SOB. Pt is a rather poor historian and does not provide any additional details. Following arrival to ED, pt was noted to be in SVT HR 160s. She received IV cardizem and converted to NSR. She remains in NSR on evaluation. Past History Past Medical History: atrial fib, hyperlipidemia, other (as per HPI) Social history: no significant social history Family history: no significant family history Medications and Allergies Allergies Allergy/AdvReac Type Severity Reaction Status Date / Time metoprolol AdvReac Unknown Verified 01/17/20 16:04 Home Medications Medication Instructions Recorded Confirmed Last Taken Type Apixaban [Eliquis] 2.5 mg PO BID 01/17/20 01/17/20 01/17/20 History AtorvaSTATin [Lipitor] 80 mg PO QHS 01/17/20 01/17/20 01/17/20 History Cyanocobalamin [Vitamin B-12] 2,500 mcg PO DAILY 01/17/20 01/17/20 01/17/20 History Active Meds: Active Medications Acetaminophen (Tylenol) 650 mg PO Q4H PRN PRN Reason: Pain MILD(1-3)/Fever >100.5/BRAGA Apixaban (Eliquis) 2.5 mg PO BID [facility]; Protocol Last Admin: 01/18/20 09:32 Dose: 2.5 mg Documented by: Atorvastatin Calcium (Lipitor) 80 mg PO QHS [facility] Last Admin: 01/17/20 23:07 Dose: 80 mg Documented by: Cyanocobalamin (Vitamin B-12) 2,500 mcg PO DAILY [facility] Last Admin: 01/18/20 09:31 Dose: 2,500 mcg Documented by: Diltiazem HCl (Cardizem Cd) 180 mg PO QDAY@0800 [facility] Last Admin: 01/18/20 09:33 Dose: 180 mg Documented by: Hydromorphone HCl (Dilaudid) 0.5 mg IV Q3H PRN PRN Reason: Pain , Severe (7-10) Methimazole (Tapazole) 10 mg PO Q12H [facility] Ondansetron HCl (Zofran) 4 mg IV Q8H PRN PRN Reason: Nausea And Vomiting Oxycodone/Acetaminophen (Percocet 5/325) 1 tab PO Q6H PRN PRN Reason: Pain, Moderate (4-6) Potassium Chloride (K-Dur) 20 meq PO Q12HR [facility] Last Admin: 01/18/20 09:35 Dose: 20 meq Documented by: Sodium Chloride (Sodium Chloride Flush Syringe 10 Ml) 10 ml IV BID [facility] Sodium Chloride (Sodium Chloride Flush Syringe 10 Ml) 10 ml IV PRN PRN PRN Reason: LINE FLUSH Review of Systems Constitutional: no weight loss, no weight gain, no fever, no chills, no sweats Ears, nose, mouth and throat: no ear pain, no nose pain, no sinus pressure, no sinus pain Cardiovascular: shortness of breath, no chest pain, no orthopnea, no palpitations, no edema, no syncope, no lightheadedness Respiratory: shortness of breath, no cough, no congestion, no wheezing, no pain on inspiration Gastrointestinal: no abdominal pain, no nausea, no vomiting, no diarrhea, no constipation, no change in bowel habits Genitourinary Female: no pelvic pain, no flank pain, no dysuria, no urinary frequency, no urgency Musculoskeletal: no neck stiffness, no neck pain, no shooting arm pain, no arm numbness/tingling, no low back pain, no shooting leg pain Integumentary: no rash, no pruritis, no redness, no sores, no wounds Neurological: no head injury, no paralysis, no weakness, no parathesias, no numbness, no tingling, no seizures, no syncope Psychiatric: no anxiety Endocrine: no cold intolerance, no heat intolerance Hematologic/Lymphatic: no easy bruising, no easy bleeding Allergic/Immunologic: no urticaria Physical Examination Vital Signs Pulse Resp 148 H 28 H 01/17/20 15:10 01/17/20 15:10 General appearance: no acute distress, cachectic HEENT: Positive: PERRL, Normocephaly, Mucus Membranes Moist Neck: Positive: neck supple, trachea midline Cardiac: Positive: Reg Rate and Rhythm, S1/S2 Lungs: Positive: Decreased Breath Sounds Neuro: Positive: Grossly Intact Abdomen: Negative: Tender Skin: Negative: Rash Musculoskeletal: No Pain Extremities: Absent: edema Results 01/18/20 05:38 01/18/20 05:38 Cardiac Enzymes 01/17/20 01/18/20 Range/Units 16:38 05:38 AST 45 H 30 (5-40) units/L Coagulation 01/17/20 Range/Units 16:38 PT 14.8 (12.2-14.9) Sec. INR 1.14 H (0.87-1.13) CBC 01/17/20 01/18/20 Range/Units 16:38 05:38 WBC 4.3 L 5.1 (4.5-11.0) K/mm3 RBC 4.23 3.60 L (3.65-5.03) M/mm3 Hgb 12.1 10.5 (10.1-14.3) gm/dl Hct 37.2 30.8 D (30.3-42.9) % Plt Count 182 156 (140-440) K/mm3 Lymph # (Auto) 1.6 1.7 (1.2-5.4) K/mm3 [place] # (Auto) 0.7 0.9 H (0.0-0.8) K/mm3 Eos # (Auto) 0.0 0.0 (0.0-0.4) K/mm3 Baso # (Auto) 0.0 0.0 (0.0-0.1) K/mm3 Comprehensive Metabolic Panel 01/17/20 01/18/20 Range/Units 16:38 05:38 Sodium 138 142 (137-145) mmol/L Potassium 3.8 3.2 L (3.6-5.0) mmol/L Chloride 103.8 106.5 (98-107) mmol/L Carbon Dioxide 22 24 (22-30) mmol/L BUN 19 H 17 (7-17) mg/dL Creatinine 0.9 0.8 (0.6-1.2) mg/dL Glucose 101 H 82 (65-100) mg/dL Calcium 8.4 8.1 L (8.4-10.2) mg/dL AST 45 H 30 (5-40) units/L ALT 32 25 (7-56) units/L Alkaline Phosphatase 79 67 (35-129) units/L Total Protein 6.8 5.9 L (6.3-8.2) g/dL Albumin 3.1 L 2.9 L (3.9-5) g/dL - Imaging and Cardiology Echo: pending EKG: report reviewed, image reviewed EKG interpretations - Telemetry EKG Rhythm: Sinus Rhythm Assessment and Plan Agree with Cardizem CD 180mg daily. Cont Eliquis 2.5mg BID in setting of age and body weight. Obtain echo. Will follow. The patient has been seen in conjunction with Dr. Beltran who agrees with the assessment and plan of care. - Patient Problems (1) Paroxysmal atrial fibrillation with RVR Current Visit: Yes Status: Chronic (2) CAD (coronary artery disease) Current Visit: Yes Status: Chronic (3) Stented coronary artery Current Visit: Yes Status: Chronic (4) Hypertension Current Visit: Yes Status: Chronic Qualifiers: Hypertension type: essential hypertension Qualified Code(s): I10 - Essential (primary) hypertension (5) Hyperlipidemia Current Visit: Yes Status: Chronic Qualifiers: Hyperlipidemia type: mixed hyperlipidemia Qualified Code(s): E78.2 - Mixed hyperlipidemia (6) History of partial thyroidectomy Current Visit: Yes Status: Chronic
[2020-01-18] MEDS: methIMAzole 5 MG TAB PO SCH ×2 (11:45→21:11)
[2020-01-18] MEDS ORDERED: FUROSEMIDE 40 MG/4 ML INJ IV SCH (18:00)
[2020-01-19] MEDS: POTASSIUM CHLORIDE ER 20 MEQ TAB PO SCH ×2 (00:01→10:05)
--- NOTE | 2020-01-19 08:51 | Progress Note ---
Assessment and Plan 89 y/o female with SVT and concern for pneumonia. 1. Pulm sen, do not know if patient is on oxygen at home or not. Suggest continued weaning. But otherwise stable. Will sign off. Call if questions. Subjective Date of service: 01/19/20 Interval history: No acute events. Oxygen increased from 2 to 3 overnight. No documentation as to why. Remainder is negative. Objective - Constitutional Vitals: Vital Signs - 12hr 01/18/20 01/18/20 01/18/20 20:50 21:00 21:27 Temperature Pulse Rate 88 84 Pulse Rate [ Radial] Respiratory 30 H 28 H Rate Blood Pressure 126/65 126/65 O2 Sat by Pulse 100 Oximetry 01/18/20 01/18/20 01/18/20 23:00 23:07 23:11 Temperature 97.7 F 97.9 F Pulse Rate 96 H Pulse Rate [ 91 H Radial] Respiratory 18 16 Rate Blood Pressure 158/85 158/85 O2 Sat by Pulse 98 98 96 Oximetry 01/19/20 01/19/20 03:36 08:30 Temperature 98.7 F Pulse Rate 92 H Pulse Rate [ Radial] Respiratory 16 Rate Blood Pressure 136/82 O2 Sat by Pulse 98 98 Oximetry - Labs CBC & Chem 7: 01/18/20 05:38 01/18/20 05:38 Labs: Abnormal lab results 01/18/20 Range/Units 18:58 POC Glucose 119 H (70-105) mg/dL Medications & Allergies - Medications Allergies/Adverse Reactions: Allergies metoprolol Adverse Reaction (Verified 01/17/20 16:04) Unknown Home Medications: Home Medications Medication Instructions Recorded Confirmed Last Taken Type Apixaban [Eliquis] 2.5 mg PO BID 01/17/20 01/17/20 01/17/20 History AtorvaSTATin [Lipitor] 80 mg PO QHS 01/17/20 01/17/20 01/17/20 History Cyanocobalamin [Vitamin B-12] 2,500 mcg PO DAILY 01/17/20 01/17/20 01/17/20 History Active Medications: Generic Name Dose Route Start Last Admin Trade Name Freq PRN Reason Stop Dose Admin Acetaminophen 650 mg 01/17/20 22:01 Tylenol PO Q4H PRN Pain MILD(1-3)/Fever >100.5/BRAGA Apixaban 2.5 mg 01/17/20 22:00 01/18/20 21:12 Eliquis PO 2.5 mg BID [facility] Administration Protocol Atorvastatin Calcium 80 mg 01/17/20 22:00 01/18/20 23:59 Lipitor PO 80 mg QHS [facility] Administration Cyanocobalamin 2,500 mcg 01/18/20 10:00 01/18/20 09:31 Vitamin B-12 PO 2,500 mcg DAILY [facility] Administration Diltiazem HCl 180 mg 01/18/20 08:00 01/18/20 09:33 Cardizem Cd PO 180 mg QDAY@0800 [facility] Administration Methimazole 10 mg 01/18/20 08:00 01/18/20 21:11 Tapazole PO 10 mg Q12H [facility] Administration Ondansetron HCl 4 mg 01/17/20 22:01 Zofran IV Q8H PRN Nausea And Vomiting Oxycodone/Acetaminophen 1 tab 01/17/20 22:01 Percocet 5/325 PO Q6H PRN Pain, Moderate (4-6) Potassium Chloride 20 meq 01/18/20 10:00 01/19/20 00:01 K-Dur PO 20 meq Q12HR [facility] Administration Sodium Chloride 10 ml 01/18/20 10:00 01/18/20 11:48 Sodium Chloride Flush Syringe 10 Ml IV 10 ml BID [facility] Administration Sodium Chloride 10 ml 01/17/20 22:01 01/18/20 23:27 Sodium Chloride Flush Syringe 10 Ml IV 10 ml PRN PRN Administration LINE FLUSH HEART Score - HEART Score Age: > 65 Risk factors: 1-2 risk factors Troponin: Troponin T 0.018 ng/mL (0.00-0.029) 01/17/20 16:38 Troponin: 1-3x normal limit - Critical Actions Critical Actions: 4-6 pts:12-16.6% risk of adverse cardiac event. Should be admitted
[2020-01-19] MEDS: CYANOCOBALAMIN (VIT B-12) 1000 MCG TAB PO SCH (10:05)
[2020-01-19] MEDS: dilTIAZem CD 180 MG CAP PO SCH (10:05)
[2020-01-19] MEDS: APIXABAN 2.5 MG TAB PO SCH (10:05)
[2020-01-19] MEDS: methIMAzole 5 MG TAB PO SCH (10:09)
--- NOTE | 2020-01-19 11:05 | Progress Note ---
Assessment and Plan tte reviewed - EF 40-45%, impaired relaxation, mild AR, mild TR, RVSP 38mmHg, moderate MR, mild [place], mod pleural effusion. tele reviewed - in SR with freq PACs overnight. D/c Cardizem and initiate Toprol XL and losartan in setting of CMP. Initiate PO lasix 20mg every other day in setting of moderate pleural effusion. Cont Eliquis 2.5mg BID in setting of age and body weight. Currently stable cardiac status. Pt may discharge from cardiology standpoint. Recommend pt follow up with [facility] within 1-2 weeks. The patient has been seen in conjunction with Dr. Beltran who agrees with the assessment and plan of care. - Patient Problems (1) Paroxysmal atrial fibrillation with RVR Current Visit: Yes Status: Chronic (2) CAD (coronary artery disease) Current Visit: Yes Status: Chronic (3) Stented coronary artery Current Visit: Yes Status: Chronic (4) Hypertension Current Visit: Yes Status: Chronic Qualifiers: Hypertension type: essential hypertension Qualified Code(s): I10 - E ssential (primary) hypertension (5) Hyperlipidemia Current Visit: Yes Status: Chronic Qualifiers: Hyperlipidemia type: mixed hyperlipidemia Qualified Code(s): E78.2 - Mixed hyperlipidemia (6) History of partial thyroidectomy Current Visit: Yes Status: Chronic Subjective Date of service: 01/19/20 Principal diagnosis: SVT Interval history: pt resting in bed, no apparent distress. tele reviewed - in SR with freq PACs overnight. Objective Last Vital Signs Temp 98.5 F 01/19/20 08:42 Pulse 89 01/19/20 10:05 Resp 18 01/19/20 08:42 BP 157/72 01/19/20 10:05 Pulse Ox 100 01/19/20 08:42 - Physical Examination General: No Apparent Distress HEENT: Positive: PERRL, Normocephaly, Mucus Membranes Moist Neck: Positive: neck supple, trachea midline Cardiac: Positive: Reg Rate and Rhythm, S1/S2 Lungs: Positive: Decreased Breath Sounds Neuro: Positive: Grossly Intact Abdomen: Negative: Tender Skin: Negative: Rash Musculoskeletal: No Pain Extremities: Absent: edema - Imaging and Cardiology EKG: report reviewed, image reviewed Echo: pending - Telemetry EKG Rhythm: Sinus Rhythm
[2020-01-19] MEDS ORDERED: FUROSEMIDE 20 MG TAB PO SCH (12:00)
--- NOTE | 2020-01-19 14:10 | Discharge Summary ---
Providers - Providers Date of Admission: 01/17/20 17:39 Date of discharge: 01/19/20 Attending physician: JAMES IBARRA 01/17/20 22:01 Consult to Physician [CONS] Routine Comment: called answ. serv./ mohsen Consulting Provider: MARC LEMON Physician Instructions: Reason For Exam: A. fib with RVR 01/18/20 06:33 Consult to Physician [CONS] Routine Comment: Consulting Provider: RADHA ROBERTS Physician Instructions: Reason For Exam: Afib with rvr Primary care physician: EMILY VILLARREAL Hospitalization Condition: Serious Disposition: DC-01 TO HOME OR SELFCARE Time spent for discharge: 32 min Core Measure Documentation - Palliative Care Palliative Care/ Comfort Measures: Not Applicable Exam - Constitutional Vitals: Temp Pulse Resp BP Pulse Ox 98.4 F 94 H 18 134/83 98 01/19/20 11:49 01/19/20 11:49 01/19/20 11:49 01/19/20 11:49 01/19/20 11:49 Plan Activity: advance as tolerated, fall precautions Diet: other (Cardiac diet, soft diet advance as tolerated) Additional Instructions: Fall precautions. Aspiration precautions. If you have worsening symptoms contact MD or go to emergency room. Advised to follow with primary care physician in 3 to 5 days. Recommend pt follow up with [facility] within 1-2 weeks. Follow up with: EMILY VILLARREAL MD [Primary Care Provider] - 3-5 Days
--- NOTE | 2020-01-19 15:23 | Event Note ---
Date: 01/19/20 I called and spoke with patient's daughter Ms. Jes Rodriguez, updated patient's condition Informed discharge planning, answered all her questions, encouraged her to call back if she has any new questions or concerns
[2020-01-19 19:23] VITALS: BP 142/72
[2020-01-20] MEDS ORDERED: LOSARTAN 25 MG TAB PO SCH (10:00)
[2020-01-20] MEDS ORDERED: METOPROLOL SUCCINATE XL 100 MG TAB PO SCH (10:00)
== END 2020-01-19 17:20 | disposition home or self-care (01) | DRG 308 ==
LOC: ED 14:08 → CC1 17:39 → 4A 01-18 22:43
PROVIDERS: ADMIT Internal Medicine; ATTEND Internal Medicine
DX: I48.0 Paroxysmal atrial fibrillation (principal); I50.43 Acute on chronic combined systolic (congestive) and diastolic (congestive) heart failure; R64 Cachexia; J90 Pleural effusion, not elsewhere classified; I47.1 Supraventricular tachycardia; I11.0 Hypertensive heart disease with heart failure; Z79.01 Long term (current) use of anticoagulants; Z88.8 Allergy status to other drugs, medicaments and biological substances; I25.2 Old myocardial infarction; Z82.49 Family history of ischemic heart disease and other diseases of the circulatory system; E05.90 Thyrotoxicosis, unspecified without thyrotoxic crisis or storm; E78.2 Mixed hyperlipidemia; I25.10 Atherosclerotic heart disease of native coronary artery without angina pectoris; Z68.21 Body mass index [BMI] 21.0-21.9, adult; Z95.5 Presence of coronary angioplasty implant and graft
CPT/HCPCS: 36415; 71045; 80053; 81001; 82140; 82550; 82962; 83036; 83735; 83880; 84439; 84443; 84484; 85025; 85610; 87040; 87086; 93005; 93306; 94760; 96365; 96375; G0378; A9270-GY; J0456; J0696; J1940; J7050